=== PATIENT | female | born 1985 | race Caucasian/White ===

== ENCOUNTER → 2017-11-17 | Emergency (ER) | payer OTHER ==
[~2017-11-17] VITALS: Ht 160 cm; Wt 88.5 kg
== END | disposition left against medical advice (07) ==
LOC: ER 12:54
DX: Z53.20 Procedure and treatment not carried out because of patient's decision for unspecified reasons (principal)

== ENCOUNTER 2018-04-27 10:28 | Emergency (ER) | payer OTHER ==
[~2018-04-27] VITALS: Ht 157.5 cm; Wt 95.3 kg
== END 2018-04-27 12:59 | disposition home or self-care (01) ==
LOC: ER 10:28
DX: E16.1 Other hypoglycemia (principal)